=== PATIENT | female | born 1975 | race Caucasian/White ===

== ENCOUNTER → 2016-10-09 | Day surgery (SDC) | payer OTHER ==
[~2016-10-09] VITALS: Ht 167.6 cm; Wt 144.2 kg
[~2016-10-09] MED LIST: ATOR20TA PO; BACITRACIN 50,000 UNIT in IV NORMAL SALINE 1000ML BAG 1,000 ML IRR ONE; CEFAZOLIN 2GM PREMIX 50 ML IV PRN; CHOL500016 PO; DEXAMETHASONE SOD PHOS 20 MG/5 ML VIAL. ONE; DOCU100C5 PO; DULO60CA6 PO; EPHEDRINE PF IN SALINE 50 MG/5 ML DISP.SYRIN. IV ONE; ESZO3TAB9 PO; FENTANYL PF 100 MCG/2 ML VIAL. IV PRN; FENTANYL PF 100 MCG/2 ML VIAL. ONE; HYDR-2762 PO; HYDR25TA9 PO; HYDROMORPHONE 2 MG/ML VIAL. IV PRN; INSU100C SQ; INSU100I13 SQ; IV RINGERS,LACTATED 1000ML 1,000 ML IV SCH; KETOROLAC 30 MG/ML SYRINGE FOR OR. INJ ONE; LIDOCAINE 1% 1 ML SYRINGE. ID PRN; LIDOCAINE 1% PF 30 ML VIAL. INJ ONE; LIDOCAINE 1% PF 30 ML VIAL. ONE; LIDOCAINE 2% 100 MG/5 ML DISP.SYRIN. ONE; LISI20TA PO; METF10002 PO; METO25TA4 PO; MORPHINE SULFATE 2 MG/ML DISP.SYRIN. IV PRN; ONDANSETRON PF 4 MG/2 ML VIAL. IV PRN; ONDANSETRON PF 4 MG/2 ML VIAL. ONE; OXYC-323 PO; OXYCODONE/APAP 5/325 TABLET. PO ONE; PANT40TA5 PO; PHENYLEPHRINE in 0.9% NACL PF 1 MG/10 ML DISP.SYRIN. IV ONE; PIOG15TA21 PO; PREG150C PO; PROCHLORPERAZINE 10 MG/2 ML VIAL. IV PRN; PROPOFOL 20 ML IV ONE; SERT100T PO; SITA100T PO; VASOPRESSIN 20 UNIT/ML VIAL. ONE
[2016-10-09 08:22] LABS: BASO # 0.1 x10^3/uL (0.0-0.2); BASO % 1 % (0-3); EOS % 4 % (0-3); HEMATOCRIT 34.6 % (36.0-47.0); HEMOGLOBIN 11.2 g/dL (12.0-15.5); LYMPH # 3.5 x10^3/uL (1.0-4.8); LYMPH % 36 % (24-48); MEAN CORPUSCULAR HEMOGLOBIN 28 pg (25-35); MEAN CORPUSCULAR HGB CONC 33 g/dL (31-37); MEAN CORPUSCULAR VOLUME 87 fL (79-100); MONO % 8 % (0-9); NEUT % 52 % (31-73); PLATELET COUNT 277 x10^3/uL (140-400); RED BLOOD COUNT 3.96 x10^6/uL (3.50-5.40); RED CELL DISTRIBUTION WIDTH 17.2 % (11.5-14.5); WHITE BLOOD COUNT 9.9 x10^3/uL (4.0-11.0)
[2016-10-09 08:29] LABS: CALCIUM 9.8 mg/dL (8.5-10.1); GFR 60.5; POTASSIUM 4.1 mmol/L (3.5-5.1)
[2016-10-09 08:32] LABS: INR 1.1 (0.8-1.1); PROTHROMBIN TIME PATIENT 13.5 SEC (11.7-14.0)
[2016-10-09 08:35] LABS: ALBUMIN 3.4 g/dL (3.4-5.0); ALBUMIN/GLOBULIN RATIO 0.7 (1.0-1.7); TOTAL BILIRUBIN 0.4 mg/dL (0.2-1.0); TOTAL PROTEIN 8.2 g/dL (6.4-8.2)
--- NOTE | 2016-10-09 10:59 | PDOC ---
BRIEF OPERATIVE NOTE Date: Oct 09, 2016 Pre-Op Diagnosis cubital tunnel syndrome Post-Op Diagnosis same Procedure Performed left ulnar nerve decompression at cubital tunnel Surgeon Fidel Scruggs Anesthesia Type: General Blood Loss 25mL Findings severe compression of ulnar nerve at cubital tunnel Complications none apparent AUDREY NAGY MD Oct 09, 2016 10:59
--- NOTE | 2016-10-09 11:04 | DISCH ---
DISCHARGE INSTRUCTIONS Condition on Discharge Condition on Discharge: Stable Activity After Discharge Activity Instructions for Disc: Avoid exertion Bathing Instructions: Shower-keep dressing dry Lifting Instructions after Dis: No pulling or pushing, Do not lift >10 pounds, Add. restrict see below (minimize activity with left arm until reassessment at follow-up appointment, keep arm elevated) Driving Instructions after Dis: Do not drive Wound Incision Care Wound/Incision Care: Ice to area for comfort, Keep wound/cast CDI, Keep wound elevated (elevate left arm for next three days), Other, see below (may remove dressing day 3 after surgery; keep incision clean and dry; do not soak, scrub, or submerge incision) Contacting the after DC Call your doctor for: Concerns you may have Follow-Up Follow up with: Dr. Nagy in two week [phone] AUDREY NAGY MD Oct 09, 2016 11:04
[2016-10-09 11:52] VITALS: BP 119/52
--- NOTE | 2016-10-11 21:24 | OP ---
DATE OF SURGERY: 10/09/2016 SURGEON: Dr. Cm Nagy. FURNACE HAND: Ubaldo Scruggs MD PREOPERATIVE DIAGNOSES: Left cubital tunnel syndrome/compression of the ulnar nerve at the left cubital tunnel. POSTOPERATIVE DIAGNOSES: Left cubital tunnel syndrome/compression of the ulnar nerve at the left cubital tunnel. PROCEDURE: Left cubital tunnel release/ulnar nerve decompression at the left cubital tunnel. ANESTHESIA: General. COMPLICATIONS: None intraprocedurally. INDICATIONS FOR THE PROCEDURE: The patient is a 41-year-old female with symptomatic left cubital tunnel syndrome refractory to nonsurgical treatments. Please refer to the patient chart for additional detail. DESCRIPTION OF PROCEDURE: After informed consent was obtained, the patient was brought to the operating room and was placed under general anesthesia. She was placed in the supine position with the left upper extremity extended laterally exposing the ulnar aspect of the left upper extremity and the region was prepped and draped in the usual sterile fashion. An incision extending few centimeters proximal and distal to the left cubital tunnel on the ulnar aspect of the left upper extremity was made with a 15-blade scalpel. Blunt dissection techniques were utilized to dissect the underlying adipose and soft tissue to the fascia and the ulnar nerve was identified proximal to the cubital tunnel. This was followed distally and gently dissected utilizing blunt dissection techniques with sharp division of connective tissue over top of the nerve extending into the cubital tunnel. The roof of this region was sharply divided with Metzenbaum scissors with careful protection of the underlying nerve. This dissection was carried distally and the nerve was followed into the two heads of the flexor carpi ulnaris. Proximally, the nerve was identified and dissected free to the [place]. The arm was flexed and extended to visualize and verify that the nerve was free in all trajectories. All regions were noted to be very well decompressed throughout this range of motion and the nerve remained stable in position. Next, the wound was generously irrigated with antibiotic irrigation. The underlying soft tissues were closed with 0 Vicryl in a simple interrupted fashion. Subcutaneous tissues reapproximated with 2-0 Vicryl in interrupted inverted fashion and the skin was reapproximated with 3-0 nylon in an interrupted vertical mattress fashion. The wound was dressed with Xeroform, Telfa, Tegaderm and a wrap of Kerlix and an Germán bandage with 4x4 was applied. At the end of procedure, all needle and sponge counts were correct x 2. The patient was extubated in the operating room and taken to recovery in stable condition. There were no intraprocedural complications apparent. CM NAGY MD DR: ULI/katelyn JOB#: [id number] / [id number] KAMERON
== END | disposition home or self-care (01) ==
LOC: SURG 06:59
PROVIDERS: ATTEND Neurological Surgery
DX: G56.22 Lesion of ulnar nerve, left upper limb (principal); I10 Essential (primary) hypertension; E78.00 Pure hypercholesterolemia, unspecified; E11.9 Type 2 diabetes mellitus without complications; E66.9 Obesity, unspecified; K21.9 Gastro-esophageal reflux disease without esophagitis; Z90.710 Acquired absence of both cervix and uterus; Z86.14 Personal history of Methicillin resistant Staphylococcus aureus infection; Z87.39 Personal history of other diseases of the musculoskeletal system and connective tissue; Z79.01 Long term (current) use of anticoagulants
CPT/HCPCS: 36415; 64718; 80053; 82947; 85027; 85610; 85730; 87641; J0690; J1100; J1885; J2370; J2405; J2704; J3010; J3490; J7030

== ENCOUNTER → 2016-11-20 | Day surgery (SDC) | payer OTHER ==
[~2016-11-20] VITALS: Ht 167.6 cm; Wt 150.6 kg
[~2016-11-20] MED LIST changes: -BACITRACIN 50,000 UNIT in IV NORMAL SALINE 1000ML BAG 1,000 ML IRR ONE; +BACITRACIN 50,000 UNIT in IV NORMAL SALINE 500ML BAG 500 ML IRR ONE; -EPHEDRINE PF IN SALINE 50 MG/5 ML DISP.SYRIN. IV ONE; -KETOROLAC 30 MG/ML SYRINGE FOR OR. INJ ONE; +LIDOCAINE 1% 20 ML VIAL. ONE; -LIDOCAINE 1% PF 30 ML VIAL. INJ ONE; -LIDOCAINE 1% PF 30 ML VIAL. ONE; -LIDOCAINE 2% 100 MG/5 ML DISP.SYRIN. ONE; +LIDOCAINE 2% 100 MG/5 ML SYRINGE. ONE; +MIDAZOLAM HCL/PF 2 MG/2 ML VIAL. ONE; -OXYCODONE/APAP 5/325 TABLET. PO ONE; -PHENYLEPHRINE in 0.9% NACL PF 1 MG/10 ML DISP.SYRIN. IV ONE; +PROPOFOL 0 ML IV ONE; -PROPOFOL 20 ML IV ONE; +SUCCINYLCHOLINE 200 MG/10 ML VIAL. ONE; -VASOPRESSIN 20 UNIT/ML VIAL. ONE
[2016-11-20 10:52] VITALS: BP 119/52
[2016-11-20 10:52] LABS: HEMATOCRIT 38.8 % (36.0-47.0); RED BLOOD COUNT 4.61 x10^6/uL (3.50-5.40); RED CELL DISTRIBUTION WIDTH 16.3 % (11.5-14.5); WHITE BLOOD COUNT 13.2 x10^3/uL (4.0-11.0)
[2016-11-20 11:02] LABS: INR 1.2 (0.8-1.1); PROTHROMBIN TIME PATIENT 14.2 SEC (11.7-14.0)
[2016-11-20 11:14] LABS: ALBUMIN 3.7 g/dL (3.4-5.0); ALBUMIN/GLOBULIN RATIO 0.8 (1.0-1.7); CALCIUM 9.7 mg/dL (8.5-10.1); CREATININE 1.3 mg/dL (0.6-1.0); GFR 44.7; POTASSIUM 4.4 mmol/L (3.5-5.1); TOTAL BILIRUBIN 0.7 mg/dL (0.2-1.0); TOTAL PROTEIN 8.5 g/dL (6.4-8.2)
== END | disposition home or self-care (01) ==
LOC: SURG 10:17
PROVIDERS: ATTEND Neurological Surgery
DX: G56.02 Carpal tunnel syndrome, left upper limb (principal); Z53.8 Procedure and treatment not carried out for other reasons; E78.00 Pure hypercholesterolemia, unspecified; I10 Essential (primary) hypertension; E66.9 Obesity, unspecified; E11.9 Type 2 diabetes mellitus without complications; F32.9 Major depressive disorder, single episode, unspecified; Z90.710 Acquired absence of both cervix and uterus; Z79.01 Long term (current) use of anticoagulants
CPT/HCPCS: 36415; 64721; 80053; 82947; 85027; 85610; 85730; 87641; J0330; J0690; J2250; J3010; J3490; J7040; J1100; J2405; J2704

== ENCOUNTER 2017-01-09 10:18 | Day surgery (SDC) | payer OTHER ==
[~2017-01-09 10:18] MED LIST changes: -BACITRACIN 50,000 UNIT in IV NORMAL SALINE 500ML BAG 500 ML IRR ONE; -CEFAZOLIN 2GM PREMIX 50 ML IV PRN; -DEXAMETHASONE SOD PHOS 20 MG/5 ML VIAL. ONE; -FENTANYL PF 100 MCG/2 ML VIAL. IV PRN; -FENTANYL PF 100 MCG/2 ML VIAL. ONE; +FLUT16SP NS; -HYDROMORPHONE 2 MG/ML VIAL. IV PRN; +HYDROmorphone 2 MG/ML VIAL IV PRN; -LIDOCAINE 2% 100 MG/5 ML SYRINGE. ONE; +LIDOCAINE 2% PF Vial for OR 5 ML VIAL. ONE; +METF-620 PO; -METF10002 PO; -PROPOFOL 0 ML IV ONE; +PROPOFOL 20 ML IV ONE; -SUCCINYLCHOLINE 200 MG/10 ML VIAL. ONE; +fentaNYL PF VIAL 100 MCG/2 ML VIAL IV PRN; +fentaNYL PF VIAL 100 MCG/2 ML VIAL ONE
[2017-01-09] MEDS ORDERED: PROPOFOL 20 ML IV ONE (12:21)
[2017-01-09] MEDS: BACITRACIN 50,000 UNIT in IV NORMAL SALINE 1000ML BAG 1,000 ML IRR ONE ×2 (12:23→12:29)
[2017-01-09] MEDS ORDERED: PHENYLEPHRINE in 0.9% NACL PF 1 MG/10 ML DISP.SYRIN. IV ONE (12:29)
[2017-01-09] MEDS ORDERED: KETOROLAC 60 MG/2 ML INJ FOR OR. ONE (13:17)
[2017-01-09] MEDS ORDERED: SEVOFLURANE 61 TO 120 MINUTES. IH ONE (13:27)
--- NOTE | 2017-01-09 13:39 | DISCH ---
DISCHARGE INSTRUCTIONS Condition on Discharge Condition on Discharge: Stable Activity After Discharge Activity Instructions for Disc: Avoid exertion, Other, see below (keep right arm elevated, no strenuous activity) Lifting Instructions after Dis: Do not lift >10 pounds Wound Incision Care Wound/Incision Care: Ice to area for comfort, Keep wound elevated, Other, see below (may remove dressings three days after surgery; keep incision clean and dry; do not soak, scrub, or submerge incision) Contacting the after DC Call your doctor for: Concerns you may have Follow-Up Follow up with: Dr. Nagy in two weeks [phone] AUDREY NAGY MD January 09, 2017 13:39
--- NOTE | 2017-01-09 13:55 | PDOC ---
BRIEF OPERATIVE NOTE Date: January 09, 2017 Pre-Op Diagnosis right cubital tunnel syndrome/ulnar nerve compression at the cubital tunnel Post-Op Diagnosis same Procedure Performed right cubital tunnel release/ulnar nerve decompression at the right cubital tunnel Surgeon Fidel Senior Commissions Analyst none Anesthesia Type: General Blood Loss 10mL Specimens Obtained none Findings ulnar nerve compression right cubital tunnel Complications none apparent AUDREY NAGY MD January 09, 2017 13:55
[2017-01-09] MEDS ORDERED: OXYC-323 PO (14:02)
[2017-01-09] MEDS ORDERED: oxyCODONE/APAP 5/325 1 TAB TABLET PO PRN ×2 (14:15)
[2017-01-09 14:23] VITALS: BP 127/55
--- NOTE | 2017-01-11 13:05 | OP ---
DATE OF SURGERY: 01/09/2017 SURGEON: Cm Nagy MD [employer] PROJECTIONIST: None. PREOPERATIVE DIAGNOSIS: Right cubital tunnel syndrome. POSTOPERATIVE DIAGNOSIS: Right cubital tunnel syndrome. PROCEDURE: Right cubital tunnel release/ulnar nerve decompression. ANESTHESIA: General. COMPLICATIONS: None intra-procedurally. INDICATIONS FOR THE PROCEDURE: The patient is a 41-year-old female who presented with a distribution pain and the EMG reveals significant right cubital tunnel syndrome. She has been refractory to nonsurgical treatments. Please refer to the patient chart for additional details. DESCRIPTION OF PROCEDURE: After informed consent was obtained, the patient was brought into the operating room, was placed under general anesthesia, was placed in supine position with the right upper extremity extended slightly laterally. The right upper extremity was prepped and draped in usual sterile fashion. A curvilinear incision centered about the region of the right cubital tunnel was incised with a 15 blade scalpel. Blunt dissection techniques were utilized to dissect the underlying soft tissues and adipose tissue proximal to the cubital tunnel. The nerve was identified and gently dissected more distally to approach the right cubital tunnel. Cubital tunnel was unnerved gently with sharp division with Metzenbaum scissors. The ulnar nerve was followed distally and unnerved and decompressed to its insertion point between the 2 heads of the flexor carpi ulnaris. The proximal decompression was palpated up to the arcade of ____ entirety the nerve was noted to be very well decompressed upon completion of these things. The elbow was gently flexed and extended to visualize the adequate decompression of the nerve. Upon completion of this, pristine hemostasis was achieved with some use of bipolar electrocautery. The wound was very generously irrigated with antibiotic irrigation. The subcutaneous tissues were then reapproximated with Vicryl suture in an interrupted inverted fashion and the skin was reapproximated with nylon suture in an interrupted vertical mattress fashion. The wound was dressed with Xeroform, Telfa, 4 x 4s, soft hole and an Germán bandage. At the end the procedure, all needle and sponge counts were correct x 2. The patient was extubated in the operating room and taken to recovery in stable condition. There were no intraprocedural complications apparent. CM NAGY MD DR: ULI/katelyn JOB#: [id number] / [id number]
== END 2017-01-09 15:00 | disposition home or self-care (01) ==
LOC: SURG 10:18
PROVIDERS: ATTEND Neurological Surgery
DX: G56.21 Lesion of ulnar nerve, right upper limb (principal); E78.00 Pure hypercholesterolemia, unspecified; I10 Essential (primary) hypertension; E66.01 Morbid (severe) obesity due to excess calories; K21.9 Gastro-esophageal reflux disease without esophagitis; M17.12 Unilateral primary osteoarthritis, left knee; E11.9 Type 2 diabetes mellitus without complications; F41.9 Anxiety disorder, unspecified; Z68.41 Body mass index [BMI] 40.0-44.9, adult; Z90.710 Acquired absence of both cervix and uterus; Z09 Encounter for follow-up examination after completed treatment for conditions other than malignant neoplasm; Z86.14 Personal history of Methicillin resistant Staphylococcus aureus infection
CPT/HCPCS: 64718; 82947; J1885; J2250; J2370; J2405; J2704; J3010; J3490; J7030